=== PATIENT | male | born 1990 | race Caucasian/White ===

== ENCOUNTER 2021-07-22 17:58 | Emergency (ER) | payer OTHER ==
[~2021-07-22] VITALS: Ht 175.3 cm; Wt 72.8 kg
[2021-07-22 18:20] VITALS: BP 123/94
== END 2021-07-22 18:49 | disposition home or self-care (01) ==
LOC: ER 17:59
DX: S09.90XA Unspecified injury of head, initial encounter (principal); M25.511 Pain in right shoulder; Z88.1 Allergy status to other antibiotic agents; X58.XXXA Exposure to other specified factors, initial encounter; Y93.89 Activity, other specified; Y92.89 Other specified places as the place of occurrence of the external cause; Y99.8 Other external cause status
CPT/HCPCS: 99282

== ENCOUNTER 2023-09-03 10:28 | Emergency (ER) | payer OTHER ==
[~2023-09-03] VITALS: Ht 175.3 cm; Wt 72.4 kg
[2023-09-03] MEDS: BUPIVAcaine 0.25% w/Epi /PF 30ml vial SQ ONE (14:20)
[2023-09-03] MEDS: normal saline 1000ml 1,000 ML IV SCH (14:50)
[2023-09-03] MEDS ORDERED: iohexol 350MG/ML 100ml bottle IV ONE (14:54)
[2023-09-03] MEDS: diphenhydrAMINE 50 mg/ml inj IV ONE (14:56)
[2023-09-03] MEDS: metoclopramide 5 mg/ml inj IV ONE (14:56)
[2023-09-03 14:59] LABS: BASOPHILS # (AUTO) 0.1 X10'3 (0-0.2); EOSINOPHILS # (AUTO) 0.2 X10'3 (0-0.9); EOSINOPHILS % (AUTO) 1.9 % (0-6); HEMATOCRIT 50.1 % (42.0-52.0); LYMPHOCYTES # (AUTO) 2.5 X10'3 (1.1-4.8); LYMPHOCYTES % (AUTO) 24.6 % (21-51); MEAN CORPUSCULAR HEMOGLOBIN 29.7 PG (27.0-31.0); MEAN CORPUSCULAR VOLUME 87.5 FL (78-98); MEAN PLATELET VOLUME 7.2 FL (7.4-10.4); MONOCYTES # (AUTO) 0.5 X10'3 (0-0.9); MONOCYTES % (AUTO) 5.1 % (2-12); NEUTROPHILS # (AUTO) 6.8 X10'3 (1.8-7.7); NEUTROPHILS % (AUTO) 67.4 % (42-75); PLATELET COUNT 351 X10'3 (140-440); RED BLOOD COUNT 5.73 X10'6 (4.70-6.10); RED CELL DISTRIBUTION WIDTH 13.1 % (11.5-14.5); WHITE BLOOD COUNT 10.2 X10'3 (4.5-11.0)
[2023-09-03 15:06] LABS: ALBUMIN 4.4 G/DL (3.4-5.0); BLOOD UREA NITROGEN 12 MG/DL (7-18); BUN/CREATININE RATIO 12.6 (10.0-20.0); CALCIUM 9.1 MG/DL (8.5-10.1); CREATININE 0.95 MG/DL (0.60-1.10); GLUCOSE 91 MG/DL (70-104); SODIUM 140 MMOL/L (135-145); TOTAL CARBON DIOXIDE 28.6 MMOL/L (24-32); eCRCL 112 ML/MIN; eGFR > 90 ML/MIN
[2023-09-03 15:10] LABS: ANION GAP 8 (8-16); CHLORIDE 103 MMOL/L (99-107); POTASSIUM 4.1 MMOL/L (3.5-5.1)
[2023-09-03 16:24] LABS: BILIRUBIN,URINE NEGATIVE (Neg); CLARITY,URINE CLEAR (Clear); COLOR,URINE YELLOW (Yellow); GLUCOSE, URINE NEGATIVE (Neg); KETONES,URINE NEGATIVE (Neg); LEUKOCYTE ESTERASE ,URINE NEGATIVE (Neg); NITRITES, URINE NEGATIVE (Neg); OCCULT BLOOD,URINE NEGATIVE (Neg); PROTEIN,URINE NEGATIVE (Neg); UA COLLECTION TYPE VOIDED; UROBILINOGEN,URINE 0.2 E.U/dL (0.2-1.0)
[2023-09-03] MEDS: normal saline 1000ML IV soln IVB ONE (19:50)
[2023-09-03 21:14] LABS: GLUCOSE,CSF 57 MG/DL (40-75); TOTAL PROTEIN,CSF 35 MG/DL (15-45)
[2023-09-03 21:16] LABS: APPEARANCE,CSF CLEAR; CSF SUPERNATANT COLOR COLORLESS; CSF VOLUME 11 ML; TUBE# COUNTED 1
[2023-09-03 21:21] LABS: CSF RBC 2 /CU MM (0); CSF WBC CT 1 /CU MM (0-5)
[2023-09-03 21:59] VITALS: BP 119/83; PULSE 84; RESP 16; TEMP 97.8; O2SAT 100
[2023-09-03 23:58] LABS: APPEARANCE,CSF CLEAR; CSF SUPERNATANT COLOR COLORLESS; CSF VOLUME 11 ML; TUBE# COUNTED 4
[2023-09-03 23:59] LABS: CSF RBC 1 /CU MM (0); CSF WBC CT 0 /CU MM (0-5)
== END 2023-09-03 22:00 | disposition home or self-care (01) ==
LOC: ER 10:28
DX: R51.9 Headache, unspecified (principal); E78.00 Pure hypercholesterolemia, unspecified; Y93.I9 Activity, other involving external motion
CPT/HCPCS: 36415; 70450; 70496; 70498; 80048; 81003; 82945; 82948; 84157; 85025; 86592; 86617; 86788; 86789; 87529; 87899; 89051; 96361; 96374; 96375; 99285; J1200; J2765; J3490; J7030; Q9967

== ENCOUNTER 2023-09-08 15:23 | Emergency (ER) | payer OTHER ==
[~2023-09-08] VITALS: Ht 175.3 cm; Wt 72.7 kg
[2023-09-08 16:35] LABS: BASOPHILS # (AUTO) 0.1 X10'3 (0-0.2); BASOPHILS % (AUTO) 0.6 % (0-1); EOSINOPHILS # (AUTO) 0.1 X10'3 (0-0.9); EOSINOPHILS % (AUTO) 0.9 % (0-6); HEMATOCRIT 49.4 % (42.0-52.0); HEMOGLOBIN 17.3 g/dl (14.0-17.9); LYMPHOCYTES # (AUTO) 1.7 X10'3 (1.1-4.8); LYMPHOCYTES % (AUTO) 18.7 % (21-51); MEAN CORPUSCULAR HEMOGLOBIN 30.2 PG (27.0-31.0); MEAN CORPUSCULAR VOLUME 86.2 FL (78-98); MEAN PLATELET VOLUME 7.3 FL (7.4-10.4); MONOCYTES # (AUTO) 0.4 X10'3 (0-0.9); NEUTROPHILS # (AUTO) 6.7 X10'3 (1.8-7.7); NEUTROPHILS % (AUTO) 74.8 % (42-75); PLATELET COUNT 363 X10'3 (140-440); RED BLOOD COUNT 5.73 X10'6 (4.70-6.10)
[2023-09-08 16:38] LABS: ALANINE AMINOTRANSFERASE 58 U/L (12-78); ALBUMIN 4.1 G/DL (3.4-5.0); ALKALINE PHOSPHATASE 69 IU/L (46-116); ANION GAP 10 (8-16); APTT 30 SECONDS (22-32); ASPARTATE AMINO TRANSFERASE 20 U/L (10-37); BILIRUBIN,TOTAL 0.5 MG/DL (0.1-1.0); BLOOD UREA NITROGEN 13 MG/DL (7-18); CHLORIDE 103 MMOL/L (99-107); CREATININE 1.08 MG/DL (0.60-1.10); GLUCOSE 109 MG/DL (70-104); POTASSIUM 3.9 MMOL/L (3.5-5.1); PROTHROMBIN TIME 11.2 SECONDS (9.0-12.0); SODIUM 140 MMOL/L (135-145); TOTAL CARBON DIOXIDE 27.3 MMOL/L (24-32); TOTAL PROTEIN 8.2 G/DL (6.4-8.2); eCRCL 98 ML/MIN; eGFR 79 ML/MIN
[2023-09-08] MEDS: metoclopramide 5 mg/ml inj IV ONE (18:40)
[2023-09-08] MEDS: ondansetron/PF 4mg/2ml inj IV ONE (19:37)
[2023-09-08] MEDS: ketorolac tromethamine 15mg/ml inj. IV ONE (19:37)
[2023-09-08] MEDS: normal saline 1000ML IV soln IVB ONE (19:52)
[2023-09-08] MEDS: LORazepam 2 mg/ml vial IV ONE (19:52)
[2023-09-08] MEDS: HYDROmorphone 1 mg/ml syringe IV ONE (19:53)
[2023-09-08] MEDS ORDERED: ASPI-144 PO (22:11)
[2023-09-08] MEDS ORDERED: METO5TAB98 PO (22:11)
[2023-09-08] MEDS ORDERED: HYDR-3965 PO (22:11)
[2023-09-08 22:32] VITALS: BP 131/88; PULSE 99; RESP 18; TEMP 97.7; O2SAT 95
== END 2023-09-08 22:33 | disposition home or self-care (01) ==
LOC: ER 15:25
DX: R51.9 Headache, unspecified (principal); M54.2 Cervicalgia; R79.1 Abnormal coagulation profile; Z88.0 Allergy status to penicillin; Z88.1 Allergy status to other antibiotic agents
CPT/HCPCS: 36415; 80053; 85025; 85610; 85730; 96361; 96374; 96375; 99284; J1170; J1885; J2060; J2405; J2765; J7030